=== PATIENT | male | born 1940 | race Caucasian/White ===

== ENCOUNTER 2017-05-13 14:28 | Emergency (ER) | payer MEDICARE ==
[~2017-05-13] VITALS: Ht 188 cm; Wt 102.5 kg
[2017-05-13] MEDS ORDERED: ATENOLOL 25 MG25 M1 PO (14:42)
[2017-05-13] MEDS ORDERED: LIPITOR 20 MG T20 M1 PO (14:42)
[2017-05-13] MEDS ORDERED: COUMADIN 5 MG TA5 M1 PO (14:42)
[2017-05-13] MEDS ORDERED: TERAZOSIN HCL5 MG PO (14:43)
[2017-05-13 15:10] LABS: ABSOLUTE EOSINOPHILS 0.2 thou/uL (0.0-0.7); ABSOLUTE LYMPHOCYTES 1.9 thou/uL (0.8-5.3); ABSOLUTE MONOCYTES 0.4 thou/uL (0.0-1.2); ABSOLUTE NEUTROPHILS 3.4 thou/uL (1.6-8.1); BASOPHILS 0.6 %; HEMATOCRIT 39.7 % (42.0-52.0); HEMOGLOBIN 13.6 gm/dL (14.0-18.0); LYMPHOCYTES 31.9 %; MCHC 34.1 g/dL (28.0-37.0); MCV 93.6 fL (80.0-100.0); MONOCYTES 6.9 %; NUCLEATED RBCS 0 /100WBC; PLATELET COUNT* 163 thou/uL (150-400); POLYS 57.6 %; RBC 4.24 mil/uL (4.50-6.00); RDW-CV 13.3 % (10.5-14.5); WBC 5.8 thou/uL (4.0-11.0)
[2017-05-13 15:18] LABS: INR 1.7; PROTIME 16.1 Seconds (9.20-11.50)
[2017-05-13 15:20] LABS: CALCIUM 9.3 mg/dL (8.5-10.1); CREATININE 0.9 mg/dL (0.6-1.3)
[2017-05-13 15:26] LABS: ALBUMIN 3.9 g/dL (3.4-5.0); TOTAL BILIRUBIN 0.7 mg/dL (<0.1-1.0); TOTAL PROTEIN 8.2 g/dL (6.4-8.2)
[2017-05-13 16:11] VITALS: BP 136/72
--- NOTE | 2017-05-14 13:06 | EKG ---
[place] [address] ELECTROCARDIOGRAM REPORT Name: LEEANN MENDOZA Room: [facility]#: [id number] Admission: 05/13/17 Attend Phys: Discharge: 05/13/17 Date of : 44 Report #: [id number] THIS REPORT FOR: //name// [facility] ED Test Date: 2017-05-13 Test Time: 14:55:15 Pat Name: LEEANN MENDOZA Department: Room: Gender: M [employer] Supervisor: : [id number] Requested By: Karina New Order Number: [id number] Reading MD: Rommel Linares Measurements Intervals Elizabeth Rate: 47 P: HI: QRS: 68 QRSD: 111 T: -86 QT: 486 QTc: 430 Interpretive Statements Atrial fibrillation RSR' in V1 or V2, right VCD or RVH LVH with IVCD and secondary repol abnrm No previous ECG available for comparison Electronically Signed On 05-14-2017 13:06:30 CDT by Rommel Linares [email or web address] <ELECTRONICALLY SIGNED> By: Uli Linares MD, [facility] 05/14/17 1306 [id number] 1455 Uli Linares MD, [facility] /EPI
== END 2017-05-13 16:13 | disposition home or self-care (01) ==
LOC: M.ERS 14:28
PROVIDERS: Nurse Practitioner Family
DX: S00.01XA Abrasion of scalp, initial encounter (principal); M54.2 Cervicalgia; I48.91 Unspecified atrial fibrillation; I10 Essential (primary) hypertension; N40.0 Benign prostatic hyperplasia without lower urinary tract symptoms; Z88.8 Allergy status to other drugs, medicaments and biological substances; W01.198A Fall on same level from slipping, tripping and stumbling with subsequent striking against other object, initial encounter; Y93.89 Activity, other specified; Y92.89 Other specified places as the place of occurrence of the external cause; Y99.8 Other external cause status